=== PATIENT | male | born 1980 | race Caucasian/White ===

== ENCOUNTER → 2018-03-07 | Outpatient (CLI) | payer MEDICAID ==
[~2018-03-07] MED LIST: QUET100T PO; SERT50TA PO
== END ==
LOC: CARD 11:24
PROVIDERS: ATTEND Family Medicine
DX: R01.1 Cardiac murmur, unspecified (principal); I08.1 Rheumatic disorders of both mitral and tricuspid valves
CPT/HCPCS: 93306

== ENCOUNTER → 2020-08-26 | Outpatient (CLI) | payer MEDICAID ==
[~2020-08-26] MED LIST changes: +ACET325T49 PO; +ARIP10TA10 PO; +CALC10009 PO; +DIPH25TA83 PO; +HYDR28.3 TP; +IBUP-2473 PO; +LOPE2TAB34 PO; +MENT5LOZ3 MM; +MOM10U PO; +NAPR-1071 PO; +NPB.9O TP; +SERT100T8 PO; +SERT50TA9 PO; +TETR15DR74 OP; +[UNRECOGNIZED DRUG - CODE] PO; +[UNRECOGNIZED DRUG - CODE] PO
== END ==
LOC: CARD 13:50
PROVIDERS: ATTEND Internal Medicine Cardiovascular Disease
DX: I34.0 Nonrheumatic mitral (valve) insufficiency (principal)
CPT/HCPCS: 93306

== ENCOUNTER → 2020-11-11 | Outpatient (CLI) | payer MEDICAID ==
[~2020-11-11] MED LIST changes: +SERT-413 PO; +SERT-414 PO; -SERT100T8 PO; -SERT50TA9 PO
== END ==
LOC: CARD 13:34
PROVIDERS: ATTEND Family Medicine
DX: I34.0 Nonrheumatic mitral (valve) insufficiency (principal); I51.7 Cardiomegaly
CPT/HCPCS: 93306

== ENCOUNTER → 2021-12-20 | Outpatient (CLI) | payer MEDICAID ==
[~2021-12-20] MED LIST changes: -MENT5LOZ3 MM; +MENT5LOZ4 MM
== END ==
LOC: CARD 14:55
PROVIDERS: ATTEND Nurse Practitioner Family
DX: I34.0 Nonrheumatic mitral (valve) insufficiency (principal); I34.1 Nonrheumatic mitral (valve) prolapse
CPT/HCPCS: 93306